=== PATIENT | female | born 1935 | race Caucasian/White ===

== ENCOUNTER 2018-02-26 13:53 | Day surgery (SDC) | payer MEDICARE, SELFPAY ==
[2018-02-24 13:08] VITALS: BMI 22.6
--- NOTE | 2018-02-26 | PATH_ITS ---
[facility] Accession Number: [id number] . 01 Material submitted: . T11 BIOPSY . 02 Diagnosis: Bone From T11: Bone with hypocellular hematopoietic marrow. Negative for evidence of tumor. MRV/03/02/2018 . 02 Electronically signed: . Luis Ken MD, Pathologist NPI- [id number] . 01 Gross description: . Received one formalin-filled container labeled with the patient's name and labeled T-11. The specimen consists of a 0.3 cm in diameter by 0.6 cm in length portion of possible bone, entirely submitted in one cassette and will be placed in Decal for softening. ([id number]) /FRR . 02 Pathologist provided ICD-10: S22.082G . 02 CPT . 012988, 404770 Performed at: 01 [facility] [address] [id number] MD Jose Garcia MD Phone: [phone] Performed at: 02 [facility] [address] [place], [place] [id number] MD Antonia Lebron MD Phone: [phone]
--- NOTE | 2018-02-26 | DI.RAD.S_ITS ---
PROCEDURE: XR THORACIC SPINE 2V INDICATIONS: T11 KYPHO TECHNIQUE: 2 views of the thoracic spine were acquired. COMPARISON: None. FINDINGS: Bones: Intraprocedural images demonstrating percutaneous T11 kyphoplasty changes noted. No extravasation of contrast and methylmethacrylate identified. Soft tissues: No paravertebral stripe thickening. IMPRESSION: Expected post procedure change for T11 kyphoplasty. Dictated by: Terra Carson MD, PhD on 02/26/2018 at 19:36 Approved by: Terra Carson MD, PhD on 02/26/2018 at 19:37
[2018-02-26 14:32] VITALS: BP 143/78; PULSE 94; RESP 16; TEMP 36.8; O2SAT 100; BMI 21.2
[2018-02-26] MEDS: LACTATED RINGERS 1,000 ML 42 ML IV (15:00)
--- NOTE | 2018-02-26 17:50 | PM.PREOP ---
Pre-operative Note Interval Note Pre-op Check: Yes History & Physical Reviewed by Physician and Yes Exam Performed Changes: No
[2018-02-26] MEDS: CEFAZOLIN 2 GM/100 ML FROZ.PIGGY IV (18:29)
--- NOTE | 2018-02-26 18:37 | SUR.OPER ---
Prone on padded OR bed, head in foam head support, gel chest rolls, gel pad under knees, pillow under lower legs, toes free of pressure, arms secured on padded arm boards at <90 degrees abduction. Safety belt at thigh.
[2018-02-26] MEDS: BUPIVACAINE 0.25% W/ EPI VIAL 50 ML INJ (18:43)
[2018-02-26 19:00] VITALS: BP 146/69; PULSE 90; RESP 18; TEMP 36.3; O2SAT 95
[2018-02-26 19:05] VITALS: BP 126/55; PULSE 88; RESP 14; O2SAT 94
--- NOTE | 2018-02-26 19:09 | PM.OP.1 ---
Operative Date/Time/Diagnoses Date of procedure: 02/26/18 Time of procedure: 19:09 Pre-op diagnosis: T11 compression fracture back pain osteoporosis Procedure & Clinicians Procedure: T11 kyphoplasty Same procedure as scheduled: Yes Indications: 82year old female with intractable pain from a T11 compression fracture. They had failed conservative management and requested operative intervention. Risks and benefits of surgery were discussed and appropriate consents were obtained. Surgeon: Joel Mir Click Yes if Unassisted: Yes Anesthesia Type: General Operative Notes Findings: none Specimen(s): other (T11 biopsy) Estimated Blood Loss (mL): 2 Procedure in detail: The patient was brought to the operating room and intubated on the table. They were then rolled over to the well-padded prone position. Time-out was performed. We confirmed positioning with two fluoroscopy views. The back was prepped and draped in the standard sterile fashion. Preoperative antibiotics were given. Using fluoroscopic guidance, the planned incision site was infiltrated with Marcaine with epinephrine and injected down to the entry site of the left pedicle of T11. A small stab incision was made and we advanced a Jamshiedi needle down the left pedicle into the vertebral body. A bone biopsy was harvested from this and sent to pathology. We then passed the DFine osteotome and opened it up to create a void inside the vertebral body. We then began injecting the cement. This was done with frequent fluoroscopy imaging. There was no extravasation. We had good fill from side to side and from top to bottom. Not much cement went up just underneath the superior endplate indicating that this was quite sclerotic worried it compressed, but the remainder filled. Once we had good fill of the T11 vertebral body the injection was stopped and the trocars were removed. Final x-rays were taken. The wound was cleaned. Steri-Strips and sterile dressing were placed. Patient was rolled over, extubated, and brought to recovery without complications. Complications: none Condition: stable Disposition: PACU Plan for aftercare: Outpatient. Activity as tolerated
[2018-02-26 19:10] VITALS: BP 140/64; PULSE 89; RESP 17; O2SAT 94
[2018-02-26 19:15] VITALS: BP 136/62; PULSE 85; RESP 16; O2SAT 96
[2018-02-26 19:47] VITALS: BP 136/65; PULSE 82; RESP 12; TEMP 36.6; O2SAT 96
== END 2018-02-26 20:01 | disposition home or self-care (01) ==
PROVIDERS: Orthopaedic Surgery; PCP Ophthalmology; Visit Provider Anesthesiology
PROC: (CPT 22513; principal; 2018-02-26 15:45)
DX: S22.080A Wedge compression fracture of T11-T12 vertebra, initial encounter for closed fracture (principal); M80.00XA Age-related osteoporosis with current pathological fracture, unspecified site, initial encounter for fracture; M54.89 Other dorsalgia; F17.210 Nicotine dependence, cigarettes, uncomplicated
CPT/HCPCS: 22513; 72070; 76000; 88305; 88311; C1776; J0690; J2405; J2704; J3010

== ENCOUNTER 2021-11-10 10:40 | Emergency (ER) | payer MEDICARE, OTHER, SELFPAY ==
[2021-11-10 11:00] VITALS: BP 177/81; PULSE 84; RESP 16; TEMP 36.2; O2SAT 97; BMI 22.8
--- NOTE | 2021-11-10 11:16 | DI.CT.S_ITS ---
PROCEDURE: CT THORACIC SPINE WO CON INDICATIONS: sent by ortho for CT, known fx TECHNIQUE: Noncontrast 3 mm thick sections acquired through the region of interest in the thoracic spine. Sagittal and coronal reformats were then constructed. For radiation dose reduction, the following was used: automated exposure control. COMPARISON: [facility], CT, CT LUMBAR SPINE WITHOUT CONTRAST, 11/05/2021, 11:11. [facility], CR, XR THORACIC SPINE 2V, 02/26/2018, 18:39. FINDINGS: Image quality: Excellent. Bones: At T10, there is wedge-shaped compression fracture with less than 5% anterior height loss and vacuum disc phenomena extending into the fracture line and vertebral body. No retropulsed fracture fragment. At T11 neck, there is a wedge-shaped compression fracture status post vertebroplasty treatment. Methylmethacrylate cement remains within the vertebral body in good position. T12 maintains appropriate height. Compression fracture at L1 and predominantly involves the inferior endplate without retropulsed fracture fragment. L2 compression fracture involving the superior endplate with sclerosis is present with retropulsed fracture fragment resulting in mild to moderate central stenosis. Additionally, there is a T3 compression fracture with 5% height loss. No retropulsed fracture fragment. Soft tissues: No paravertebral masses or hematomas. Visualized posteromedial lungs appear clear. IMPRESSION: 1. Compression fractures at T3 and spanning the thoracolumbar junction as above. 2. Vertebroplasty treatment at T11, stable Approved by: Mark Waller M.D. on 11/10/2021 at 12:16
--- NOTE | 2021-11-10 11:16 | ED_ITS ---
HPI - Back Pain/Injury General Chief Complaint: Back Pain/Injury Stated Complaint: fractured spine requesting CT Time Seen by Provider: 11/10/21 10:58 Source: patient History of Present Illness HPI Narrative: 85-year-old female nonsmoker with prior spinal surgeries presents at the request of her spine doctor to get advanced imaging. She reports multiple falls recently and recently had an x-ray in his office demonstrating a thoracic fracture. It sounds like the plan is to perform kyphoplasty, he ordered an outpatient spinal CT and requested she follow up with him in the aftermath. She presents today because she is having ongoing pain, and states that she can not wait until when her outpatient CT was scheduled at the end of the month. She denies any recent falls since the x-ray. She had no head or neck involvement. She denies any dizziness or lightheadedness. She has no chest pain or shortness of breath. She denies loss of control of bowel or bladder nor any lower extremity numbness, tingling or weakness Related Data Home Medications Medication Instructions Recorded Confirmed alendronate 70 mg tablet 70 mg PO QWEEK 02/24/18 02/26/18 lorazepam 0.5 mg tablet 1 mg PO TID PRN Anxiety 02/24/18 02/24/18 multivitamin (Multiple Vitamins 1 tab PO DAILY 02/26/18 02/26/18 tablet) Allergies Allergy/AdvReac Type Severity Reaction Status Date / Time No Known Drug Allergies Allergy Verified 11/10/21 11:11 Review of Systems Review of Systems Narrative: GENERAL: Denies chills, fatigue, malaise, fever, sweats. HEENT: Denies sinus pain, ear pain, sore throat, difficulty swallowing, dizziness. RESPIRATORY: Denies dyspnea, cough, wheezing, hemoptysis, sputum. CARDIOVASCULAR: Denies chest pain, palpitations, orthopnea, edema, GASTROINTESTINAL: Denies nausea, vomiting, abdominal pain, diarrhea, constipation, melena. : Denies dysuria, frequency, incontinence, hematuria, urinary retention. MUSCULOSKELETAL: See HPI SKIN: Denies rash, skin lesions, or other NEUROLOGIC: See HPI PSYCHIATRIC: No concerning psychosocial issues. 12 point review of systems is negative except for those stated above Patient History Medical History Anxiety Bacterial infection due to Klebsiella pneumoniae (~2011) Bilateral cataracts Elevated LFTs Hyperopia Osteoarthritis Seborrheic dermatitis T12 compression fracture TMJ (temporomandibular joint disorder) Social History household members: children Smoking Status: Unknown if ever smoked Smoking Status: Unknown if ever smoked alcohol intake frequency: holidays/special occasions only Substance Use Type: does not use Exam Narrative Exam Narrative: GEN: AOx3 and in mild distress, GCS 15 EYES: Pupils are equal, round, and reactive to light and accommodation. Extraoccular muscles are intact bilaterally. There is no subconjunctival hemorrhage or exudate. CHEST: Lungs are clear to auscultation bilaterally and free of wheezes, rales, or rhonchi. Heart rate is regular rhythm, there are no murmurs, clicks, rubs, or gallops. There is no chest wall tenderness. ABD: Abdomen is soft and nontender. There is no guarding or rebound. Bowel sounds are normal in all 4 quadrants. There is no mass or organomegaly. EXT: Full painless ROM of all extremities with no loss of sensation or strength. BACK: midline thoracic tenderness, no stepoffs or crepitance SKIN: Warm, pink, and dry. No erythema or rash Initial Vital Signs Initial Vital Signs: Vital Signs Temperature 97.2 F L 11/10/21 11:00 Pulse Rate 84 11/10/21 11:00 Respiratory Rate 16 11/10/21 11:00 Blood Pressure 177/81 H 11/10/21 11:00 Pulse Oximetry 97 11/10/21 11:00 Oxygen Delivery Method 11/10/21 11:00 Course Orders Ordered: ED Orders 11/10/21 11:16 CT thoracic spine wo con Stat Vital Signs Vital signs: Vital Signs - 8 hr 11/10/21 11:00 Temperature 97.2 F L Pulse Rate 84 Respiratory Rate 16 Blood Pressure 177/81 H Pulse Oximetry 97 Oxygen Delivery Method Room Air MDM - Back Pain/Injury Imaging Data CT T Spine: Radiologist's Impression: [address] [address] [address] Scan Report Signed Patient: Fabiola Apodaca MR#: [id number] : 1935 Acct:[id number] Age/Sex: 85 / F Date of Service: 11/10/21 Loc: ED Accession Number: [id number] ?? Procedure: CT thoracic spine wo con Ordering Provider: Will Todd D.O. PROCEDURE:? CT THORACIC SPINE WO CON ? INDICATIONS:? sent by ortho for CT, known fx ? TECHNIQUE:? Noncontrast 3 mm thick sections acquired through the region of interest in the thoracic spine.? Sagittal and coronal reformats were then constructed.? For radiation dose reduction, the following was used:? automated exposure control.? ? COMPARISON:? [facility], CT, CT LUMBAR SPINE WITHOUT CONTRAST, 11/05/2021, 11:11.? [facility], CR, XR THORACIC SPINE 2V, 02/26/2018, 18:39. ? FINDINGS:? Image quality:? Excellent.? ? Bones:? At T10, there is wedge-shaped compression fracture with less than 5% anterior height loss and vacuum disc phenomena extending into the fracture line and vertebral body.? No retropulsed fracture fragment.? At T11 neck, there is a wedge-shaped compression fracture status post vertebroplasty treatment.? Methylmethacrylate cement remains within the vertebral body in good position.? T12 maintains appropriate height.? Compression fracture at L1 and predominantly involves the inferior endplate without retropulsed fracture fragment.? L2 compression fracture involving the superior endplate with sclerosis is present with retropulsed fracture fragment resulting in mild to moderate central stenosis. ? Additionally, there is a T3 compression fracture with 5% height loss.? No retropulsed fracture fragment. ? Soft tissues:? No paravertebral masses or hematomas.? Visualized posteromedial lungs appear clear.? ? IMPRESSION:? ? 1. Compression fractures at T3 and spanning the thoracolumbar junction as above. ? 2. Vertebroplasty treatment at T11, stable? Approved by: Mark Waller M.D. on 11/10/2021 at 12:16? MDM Narrative Medical decision making narrative: Patient with known thoracic fracture sent by her orthopedist for more advanced imaging. She has no neurologic symptoms, no loss of control of bowel or bladder, lower extremity numbness, weakness or tingling, no footdrop or saddle anesthesia. She is had no fever or chills and takes no blood thinners. She has an established relationship with local orthopedist and plans for kyphoplasty. Return precautions discussed and questions answered to her apparent satisfaction Discharge Plan Departure Patient Disposition: Home Clinical Impression: Traumatic compression fracture of T3 vertebra, Closed compression fracture of L2 vertebra Instructions: DI for Vertebral Fracture Activity Restrictions/Additional Instructions: *You have been diagnosed with [compression fractures] *What to do: *Please continue to take your regular medications as directed. [ ] New medication prescriptions sent to your pharmacy: [ ] [ ] New medication written as a paper prescription [ x] No new medications given *Please follow up with Dr. Mir, call the office Friday and let them know that you were able to obtain the CT scan that he had requested *Return to Emergency Department if you should have any new, worsening or concerning symptoms, such as [lower extremity numbness, tingling or weakness, loss of control of bowel or bladder, worsening pain or other bothersome symptoms Prescriptions: No Action alendronate 70 mg Tablet 70 mg PO QWEEK lorazepam 0.5 mg Tablet 1 mg PO TID PRN (Reason: Anxiety) multivitamin [Multiple Vitamins] Tablet 1 tab PO DAILY Referrals: Joel Mir MD [Physician] - Chavez Shankar MD [Primary Care Provider] - Visit Report Forms: Patient Portal/API
[2021-11-10 14:04] VITALS: BP 187/80; PULSE 82; RESP 18; O2SAT 100
== END 2021-11-10 14:05 | disposition home or self-care (01) ==
PROVIDERS: Emergency Provider Emergency Medicine; PCP Ophthalmology
DX: S22.039A Unspecified fracture of third thoracic vertebra, initial encounter for closed fracture (principal); S32.029A Unspecified fracture of second lumbar vertebra, initial encounter for closed fracture; R29.6 Repeated falls; W19.XXXA Unspecified fall, initial encounter
CPT/HCPCS: 72128; 99281; 99283